=== PATIENT | female | born 1975 | race Caucasian/White ===

== ENCOUNTER → 2016-10-11 | Day surgery (SDC) | payer OTHER ==
[2016-10-11 12:39] LABS: HCT 41.2 % (37.0-47.0); HGB 13.7 g/dl (12.5-16.0); MCH 29.5 pg (25.0-31.0); MCHC 33.3 g/dL (32.0-36.0); MCV 88.8 fL (78.0-100.0); MPV 8.6 fL (6.0-9.5); RBC 4.64 M/uL (4.20-5.40); RDW 13.7 % (11.5-14.0); WBC 7.7 K/uL (4.0-10.5)
== END | disposition home or self-care (01) ==
LOC: FAS 11:27
PROVIDERS: Legal Medicine
DX: Z47.2 Encounter for removal of internal fixation device (principal); F32.9 Major depressive disorder, single episode, unspecified; K21.9 Gastro-esophageal reflux disease without esophagitis; Z90.89 Acquired absence of other organs; Z90.49 Acquired absence of other specified parts of digestive tract; Z98.890 Other specified postprocedural states; Z87.891 Personal history of nicotine dependence; Z79.1 Long term (current) use of non-steroidal anti-inflammatories (NSAID); Z79.82 Long term (current) use of aspirin; Z79.891 Long term (current) use of opiate analgesic; Z79.899 Other long term (current) drug therapy
CPT/HCPCS: 36415; 73600; 76000; 84703; J0690; J2704; J2795; J3010; J3260